=== PATIENT | female | born 1995 | race Caucasian/White ===

== ENCOUNTER 2017-09-17 22:39 | Emergency (ER) | payer BC ==
[~2017-09-17] VITALS: Ht 170.2 cm; Wt 77.2 kg
[~2017-09-17 22:39] MED LIST: ALBUTEROL SUL0.083 % IN; AUGMENTIN875TAB PO; FLUTICASONE50 MCG; MIRACLEMM PO; MONTELUKAST SOD10 MG PO; MOTRIN200 MG; NO HOME MEDS; PROVENTIL HFA IN; SINGULAIR5 MG PO; ULTRAM50 M1 PO; ZOFRAN ODT4 MG PO
[2017-09-18 00:02] LABS: INFLUENZA A NONE DETECTED (NONE DETECT); INFLUENZA B NONE DETECTED (NONE DETECT)
[2017-09-18] MEDS ORDERED: CODEINE/GUAIFEN1 SOL PO (00:38)
[2017-09-18] MEDS ORDERED: MEDDOSEPAK PO (00:38)
[2017-09-18 00:45] VITALS: BP 128/77
== END 2017-09-18 00:45 | disposition home or self-care (01) | DRG 203 ==
LOC: ED 22:39
PROVIDERS: Emergency Medicine
DX: J45.909 Unspecified asthma, uncomplicated (principal); J05.0 Acute obstructive laryngitis [croup]; R05 Cough; R06.02 Shortness of breath